=== PATIENT | male | born 1960 | race Two or more races ===

== ENCOUNTER 2018-09-21 06:07 | Emergency (ER) | payer MEDICAID, OTHER ==
[~2018-09-21] VITALS: Ht 182.9 cm; Wt 86.2 kg
--- NOTE | 2018-09-21 06:12 | NUR ---
Pt BIBRA for "bizarre behavior" from streets. Pt admits to taking PCP. Pt AXO3. Respirations even and unlabored. Pt restless on gurney. Pt put on the desk monitor and pulse ox. Pending eval from NATY GAMEZ.
[2018-09-21 06:38] LABS: BASOPHILS % (AUTO) 0.5 % (0.0-2.0); EOSINOPHILS % (AUTO) 0.2 % (0.0-6.0); HEMATOCRIT 41 % (39-51); HEMOGLOBIN 14.1 g/dL (13.5-17.5); LYMPHOCYTES # (AUTO) 0.2 /CMM (0.8-4.8); LYMPHOCYTES % (AUTO) 2.9 % (20.0-44.0); MEAN CORPUSCULAR HGB CONC 35 g/dl (31.0-36.0); MEAN CORPUSCULAR VOLUME 102 fL (80-96); MONOCYTES # (AUTO) 0.4 /CMM (0.1-1.30); MONOCYTES % (AUTO) 6.5 % (2.0-12.0); NEUTROPHILS # (AUTO) 5.8 /CMM (1.8-8.9); NEUTROPHILS % (AUTO) 89.9 % (43.0-81.0); PLATELET COUNT (AUTO) 69 /CMM (150-450); RED BLOOD CELL COUNT(AUTO) 4.02 MIL/uL (4.5-6.0); WHITE BLOOD COUNT (AUTO) 6.5 K/uL (4.3-11.0)
--- NOTE | 2018-09-21 06:45 | NUR ---
Urine sample obtained. Sent to lab.
[2018-09-21 06:47] LABS: CALCIUM, SERUM 8.8 mg/dL (8.5-10.1); CARBON DIOXIDE 22 mmol/L (21-32); CHLORIDE 103 mmol/L (98-107); CREATININE 0.9 mg/dL (0.6-1.3); GLUCOSE 107 mg/dL (74-106); POTASSIUM 3.7 mmol/L (3.5-5.1); SODIUM SERUM 137 mmol/L (136-145); UREA NITROGEN, BLOOD 27 mg/dL (7-18)
[2018-09-21] MEDS ORDERED: LORAZEPAM 1 MG TABLET ONE (06:47)
[2018-09-21 06:48] LABS: APPEARANCE,URINE Clear (CLEAR); BILIRUBIN,URINE SMALL (NEGATIVE); BLOOD, URINE Trace-lysed Ery/uL (NEGATIVE); COLOR,URINE Yellow (YELLOW); KETONES,URINE Trace (NEGATIVE); LEUKOCYTE ESTERASE ,URINE Negative (NEGATIVE); NITRITE, URINE Negative (NEGATIVE); PH,URINE 5.5 (5.0-8.0); PROTEIN,URINE Trace mg/dl (NEGATIVE); UGLUCOSE Negative (NEGATIVE)
[2018-09-21] MEDS: LORAZEPAM 1 MG TABLET PO ONE (06:52)
[2018-09-21 06:53] LABS: ALANINE AMINOTRANSFERASE 78 U/L (12-78); ALBUMIN 3.3 g/dL (3.4-5.0); ALCOHOL, BLOOD < 3 mg/dL (0-0); ALKALINE PHOSPHATASE 155 U/L (46-116); ASPARTATE AMINOTRANSFERASE 112 U/L (15-37); BILIRUBIN,DIRECT 0.6 mg/dL (0.0-0.2); BILIRUBIN,TOTAL 1.9 mg/dL (0.2-1.0)
[2018-09-21 06:58] LABS: ACETAMINOPHEN 0 ug/ml (10-30); SALICYLATE < 2.0 mg/dL (2.8-20.0)
[2018-09-21 07:01] LABS: RBC,URINE 21-50 /HPF (0-2)
[2018-09-21 07:02] LABS: BACTERIA,URINE Few /HPF (None Seen); MUCUS,URINE Few /LPF (None Seen); SQUAMOUS EPITHELIAL CELL,UR Few /HPF (None Seen); WBC,URINE 0-2 /HPF (0-3)
--- NOTE | 2018-09-21 07:05 | NUR ---
Pt restless on gurney, Will continue to monitor.
--- NOTE | 2018-09-21 07:38 | NUR ---
Report given to Gio TERRAZAS for NOELLE.
[2018-09-21 08:01] LABS: BAND % (MANUAL) 1 % (0.0-5.0); LYMPHOCYTES % (MANUAL) 4 % (16-48); MONOCYTES % (MANUAL) 9 % (0-11.0); NEUTROPHILS % (MANUAL) 86 (42-76)
--- NOTE | 2018-09-21 10:19 | NUR ---
Ben CAST SHELL GRINDER at bedside for eval. and per Ben patient is not SI/HI, made aware. Will continue to monitor accordingly.
--- NOTE | 2018-09-21 14:10 | NUR ---
SW received a call from [place] in ED informing SW that pt. is ready for d/c. SW met with MK Powers and informed him that station tender Ben had seen the pt. and gave him referrals along with Ash Bhandari. Per MK Powers the referrals and [facility] cannot be located. SW met with pt. bedside. Pt. is alert and oriented x 4. Pt. is ambulatory. Pt. was eating his food. SW gave pt. the following homeless resources: Behavioral Health and Substance Abuse Referrals and Clinics for Screening [facility] [address] [facility] [place] [address] [facility] (Behavioral Health) [address] [facility], 2nd floor Need appointment TARIQ Gomes [phone] Main Number: [facility] ([facility]): Contact [facility] [address] [place] [address] Walk-in for psychiatric consultation HOURS: Mon-Fri 8am--7pm Saturdays 9am--5:30pm [facility] (Behavioral Health) [facility] Walk-in [place] [address] Operation Hours: MON - FRI 8:00 a.m. - 5:00 p.m. Walk In Hours: MON - FRI 8:00 a.m. - 5:00 p.m. Services by Age: Adults and Older Adults Healthcare Clinics for Homeless Patients [facility] [address] [facility], Vaccines and infectious disease resource [address] [place]. [place] Hours: M, T, Th, F 8:30AM-4:30PM Walk-ins allowed Provide medical screening and pharmacy [facility] [address] [facility] [address] [place] [address] Vaccines and infectious diseases Hours M-F 8AM-3:30PM Walk-ins allowed Provide medical screening and pharmacy [facility] [address] [facility]. [place] [id number] [phone] Hours 8AM-4:30PM Walk-ins allowed Provide medical screening and pharmacy Alcohol and Drug Treatment Programs [facility] Substance Abuse Self-helpline ([place]) Substance Abuse Contact number . Call the hotline and the small kick press operator will screen and link individual to an appropriate program. Must have Medi-rosalee or be Med-rosalee eligible. [facility] [id number] [facility]. [place] [id number] [facility] [address] [place] [address] Appointment needed Intake at 8.00 am but this does not mean acceptance [facility] [address] [facility] [place] [address] (Six months program and need to work for 8 hrs per day while in treatment) [facility] (No insurance required) [address] [place] [address] [place] [address] [facility] [address] Closed on Friday Open Friday through Friday 9 am -6 pm Friday 10am 5 pm Closed on Friday [facility] [phone] [address] [facility] [address] Prefer phone calls. They do allow walk-ins but prefer appointments. Pt. was provided with TAP card. Homeless Patient Waiver Form was signed by the pt. and placed in pt's chart.
[2018-09-21 14:24] VITALS: BP 135/81
--- NOTE | 2018-09-21 14:26 | NUR ---
Patient discharged to home in stable condition. Written and verbal after care instructions given. Patient verbalizes understanding of instruction.Patient given written and verbal discharge instructions. Patient verbalizes understanding of instructions. Patient is ambulatory with steady gait. Refuses offer of residential placement. Patient given list of available shelters in surrounding area. food provided, and pass card.
== END 2018-09-21 14:25 | disposition home or self-care (01) ==
LOC: ER 06:09
DX: F15.10 Other stimulant abuse, uncomplicated (principal); F10.10 Alcohol abuse, uncomplicated; R00.0 Tachycardia, unspecified; Y90.0 Blood alcohol level of less than 20 mg/100 ml; Z60.2 Problems related to living alone
CPT/HCPCS: 36415; 80048; 80076; 80305; 80307; 80329; 81001; 85025; 99283; G0480; 81000-TC